=== PATIENT | male | born 1955 | race Caucasian/White ===

== ENCOUNTER 2018-10-17 15:54 | Outpatient (REF) | payer SELFPAY ==
[2018-10-17 21:30] LABS: ALT 134 U/L (12-78); AST 98 U/L (15-37); Albumin 4.1 g/dL (3.4-5.0); Alkaline Phosphatase 65 U/L (46-116); Anion Gap 10.7 mmol/L (3-11); BUN 15 mg/dL (7-18); Bilirubin, Total 1.1 mg/dL (0.2-1.0); CO2 26.3 mmol/L (21.0-32.0); CREATININE 0.95 mg/dL (0.70-1.30); Calcium 9.1 mg/dL (8.5-10.1); Chloride 101 mmol/L (98-107); Glucose 98 mg/dL (70-100); Potassium 4.1 mmol/L (3.5-5.1); Sodium 138 mmol/L (136-145); Total Protein 7.5 g/dL (6.4-8.2)
== END 2018-10-17 16:14 ==
LOC: NCHCN 15:54
PROVIDERS: PCP Family Medicine; Visit Provider Family Medicine
DX: I10 Essential (primary) hypertension (principal)
CPT/HCPCS: 80053

== ENCOUNTER 2018-12-05 14:55 | Outpatient (REF) | payer MEDICARE, SELFPAY ==
[2018-12-05 22:38] LABS: ALT 128 U/L (12-78); AST 99 U/L (15-37); Albumin 4.2 g/dL (3.4-5.0); Alkaline Phosphatase 70 U/L (46-116); Bilirubin, Direct 0.33 mg/dL (0.00-0.20); Bilirubin, Total 1.2 mg/dL (0.2-1.0); Total Protein 7.6 g/dL (6.4-8.2)
[2018-12-07 09:36] LABS: Hepatitis C Ab w Rflx HCV PCR Negative (NEGAT)
[2018-12-07 09:43] LABS: HBs Antibody, Quant <3.1 mIU/mL; Hepatitis B Surface Ab Negative
[2018-12-07 12:28] LABS: Lyme Ab w Rflx to Lyme Confirm Negative
[2018-12-07 22:37] LABS: Anaplasma phagocytophilum Negative (Negative); B. miyamotoi PCR Negative (Negative); Babesia divergens/MO-1 Negative (Negative); Babesia duncani Negative (Negative); Babesia microti Negative (Negative); Ehrlichia chaffeensis Negative (Negative); Ehrlichia ewingii/canis Negative (Negative); Ehrlichia muris eauclairensis Negative (Negative)
== END 2018-12-05 15:15 ==
LOC: NCHCN 14:55
PROVIDERS: PCP Family Medicine; Visit Provider Family Medicine
DX: I10 Essential (primary) hypertension (principal); W57.XXXA Bitten or stung by nonvenomous insect and other nonvenomous arthropods, initial encounter; T14.8XXA Other injury of unspecified body region, initial encounter; Z11.59 Encounter for screening for other viral diseases; Z01.84 Encounter for antibody response examination
CPT/HCPCS: 80076; 86706; 86803; 87798; 86618

== ENCOUNTER 2019-05-07 01:03 | Outpatient (CLI) | payer MEDICARE, SELFPAY ==
--- NOTE | 2019-05-07 08:14 | DI.RAD_ITS ---
EXAM: XR SHOULDER RT COMPLETE 2+V INDICATION: SHOULDER PAIN RT, M25.511. COMPARISON: No exams were available for comparison TECHNIQUE: 2D digital imaging was performed. FINDINGS: There is mild spurring at the AC joint. There is moderate spurring at the glenohumeral joint, greate r inferiorly. Spurring is also seen at the lesser tuberosity. There is a small calcification above the greater tuberosity which could represent a tendon or joint space calcification. IMPRESSION: Moderate degenerative changes.
== END 2019-05-07 01:23 ==
PROVIDERS: PCP Family Medicine; Visit Provider Family Medicine
DX: M25.511 Pain in right shoulder (principal); M19.011 Primary osteoarthritis, right shoulder
CPT/HCPCS: 73030

== ENCOUNTER 2020-01-24 12:53 | Outpatient (REF) | payer MEDICARE, SELFPAY ==
[2020-01-24 18:57] LABS: HCT 45.4 % (40.0-50.0); HGB 15.9 g/dL (13.5-17.5); MCV 94.2 fL (80-95); MPV 12.7 fL (8.0-11.0); Platelet Count 190 10^3/uL (130-400); RBC 4.82 10^6/uL (4.36-5.78); RDW 12.2 % (11.8-14.1); RDW-SD 42.6 fL; WBC 5.43 10^3/uL (4.4-10.8)
[2020-01-24 19:17] LABS: ALT 115 U/L (16-63); AST 147 U/L (15-37); Albumin 3.8 g/dL (3.4-5.0); Alkaline Phosphatase 112 U/L (46-116); Anion Gap 11.2 mmol/L (3-11); BUN 6 mg/dL (7-18); Bilirubin, Total 1.8 mg/dL (0.2-1.0); C-Reactive Protein 0.44 mg/dL (0.0-0.3); CO2 26.8 mmol/L (21.0-32.0); CREATININE 0.84 mg/dL (0.70-1.30); Calcium 9.2 mg/dL (8.5-10.1); Chloride 101 mmol/L (98-107); Glucose 101 mg/dL (74-106); Potassium 3.7 mmol/L (3.5-5.1); Sodium 139 mmol/L (136-145); TSH (W/Ref FT4) 2.15 uIU/mL (0.36-3.74); Total Protein 7.5 g/dL (6.4-8.2)
[2020-01-24 19:59] LABS: ESR 11 mm/hr (1-20)
== END 2020-01-24 13:13 ==
LOC: NCHCN 12:53
PROVIDERS: PCP Family Medicine; Visit Provider Family Medicine
DX: I10 Essential (primary) hypertension (principal); R63.4 Abnormal weight loss; R11.10 Vomiting, unspecified; F43.20 Adjustment disorder, unspecified
CPT/HCPCS: 80053; 85027; 85652; 84443; 86140

== ENCOUNTER 2020-03-06 20:43 | Outpatient (REF) | payer MEDICARE, SELFPAY ==
[2020-03-06 19:56] LABS: Anion Gap 10.9 mmol/L (3-11); BUN 8 mg/dL (7-18); CO2 27.1 mmol/L (21.0-32.0); CREATININE 0.72 mg/dL (0.70-1.30); Calcium 9.2 mg/dL (8.5-10.1); Chloride 102 mmol/L (98-107); Glucose 95 mg/dL (74-106); Potassium 4.2 mmol/L (3.5-5.1); Sodium 140 mmol/L (136-145); Vitamin B12 417 pg/mL (193-986)
== END 2020-03-06 21:03 ==
LOC: NCHCN 20:43
PROVIDERS: PCP Family Medicine; Visit Provider Family Medicine
DX: I10 Essential (primary) hypertension (principal)
CPT/HCPCS: 80048; 82607

== ENCOUNTER 2022-02-19 19:11 | Outpatient (REF) | payer MEDICARE, SELFPAY ==
[2022-02-19 17:23] LABS: HCT 47.1 % (40.0-50.0); HGB 16.4 g/dL (13.5-17.5); MCH 31.8 pg (27.0-33.0); MCHC 34.8 % (32.0-36.0); MCV 92 fL (80-95); MPV 12.1 fL (8.0-11.0); Platelet Count 174 10^3/uL (130-400); RBC 5.15 10^6/uL (4.36-5.78); RDW 12.6 % (11.8-14.1); RDW-SD 42.6 fL; WBC 4.61 10^3/uL (4.4-10.8)
[2022-02-19 17:58] LABS: ALT 70 U/L (16-63); AST 53 U/L (15-37); Albumin 4.2 g/dL (3.4-5.0); Alkaline Phosphatase 84 U/L (46-116); BUN 12 mg/dL (7-18); Bilirubin, Total 1.9 mg/dL (0.2-1.0); CREATININE 0.9 mg/dL (0.70-1.30); Calcium 9.1 mg/dL (8.5-10.1); Calculated LDL 138 mg/dL (<100); Chloride 99 mmol/L (98-107); Cholesterol 241 mg/dL (<200); Estimated GFR 93.03 (mL/min/1.73m2); Glucose 107 mg/dL (74-106); HDL Cholesterol 89 mg/dL (40-60); Potassium 3.7 mmol/L (3.5-5.1); Sodium 137 mmol/L (136-145); Total Protein 7.8 g/dL (6.4-8.2); Triglyceride 73 mg/dL (<150)
== END 2022-02-19 19:12 | disposition home or self-care (01) ==
LOC: NCHCN 19:11
PROVIDERS: PCP Family Medicine; Visit Provider Family Medicine
DX: I10 Essential (primary) hypertension (principal); R40.4 Transient alteration of awareness; Z00.00 Encounter for general adult medical examination without abnormal findings
CPT/HCPCS: 80053; 80061; 85027

== ENCOUNTER 2023-06-30 12:51 | Outpatient (REF) | payer MEDICARE, SELFPAY ==
[2023-06-30 15:29] LABS: Abs Immature Grans 0.01 10^3/uL (0.0-0.06); Absolute Basophil Count 0.04 10^3/uL (0.0-0.2); Absolute Eosinophil Count 0.06 10^3/uL (0.0-0.7); Absolute Lymphocyte Count 1.15 10^3/uL (1.2-3.4); Absolute Monocyte Count 0.48 10^3/uL (0.1-0.8); Absolute Neutrophil Count 3.69 10^3/uL (1.2-6.7); Basophils % 0.7; Eosinophils % 1.1; HCT 42.8 % (40.0-50.0); HGB 14.5 g/dL (13.5-17.5); Immature Grans % 0.2; Lymphocytes % 21.2; MCH 28.7 pg (27.0-33.0); MCHC 33.9 % (32.0-36.0); MCV 85 fL (80-95); MPV 12.2 fL (8.0-11.0); Monocytes % 8.8; Platelet Count 183 10^3/uL (130-400); RBC 5.06 10^6/uL (4.36-5.78); RDW 13.1 % (11.8-14.1); RDW-SD 40.7 fL; WBC 5.43 10^3/uL (4.4-10.8)
[2023-06-30 15:47] LABS: Prothrombin Time 9.7 sec (9.1-11.1)
[2023-06-30 16:05] LABS: ALT 23 U/L (16-63); AST 20 U/L (15-37); Alkaline Phosphatase 61 U/L (46-116); Anion Gap 10.4 mmol/L (3-11); BUN 11 mg/dL (7-18); Bilirubin, Total 1.1 mg/dL (0.2-1.0); CO2 29.6 mmol/L (21.0-32.0); CREATININE 0.8 mg/dL (0.70-1.30); Calcium 8.8 mg/dL (8.5-10.1); Chloride 102 mmol/L (98-107); Creatine Kinase 135 U/L (39-308); Glucose 93 mg/dL (74-106); Potassium 4.2 mmol/L (3.5-5.1); Sodium 142 mmol/L (136-145); Total Protein 7.4 g/dL (6.4-8.2)
[2023-06-30 16:26] LABS: Calculated LDL 89 mg/dL (<100); Cholesterol 160 mg/dL (<200); HDL Cholesterol 63 mg/dL (40-60); Triglyceride 43 mg/dL (<150)
== END 2023-06-30 12:52 | disposition home or self-care (01) ==
LOC: NCHCN 12:51
PROVIDERS: PCP Family Medicine; Visit Provider Family Medicine
DX: I10 Essential (primary) hypertension (principal)
CPT/HCPCS: 80053; 80061; 82550; 85025; 85610